=== PATIENT | female | born 1970 ===

== ENCOUNTER 2018-03-13 16:48 | Outpatient (REF) | payer BC, SELFPAY ==
[2018-03-13 20:33] LABS: Iron 46 ug/dL (50-175); Total Iron Binding Capacity 337 ug/dL (250-450); Transferrin Sat 14 % (15-50)
[2018-03-13 20:34] LABS: ALT 21 U/L (12-78); AST 20 U/L (15-37); Albumin 3.7 g/dL (3.4-5.0); Alkaline Phosphatase 68 U/L (46-116); Anion Gap 6.2 mmol/L (3-11); BUN 9 mg/dL (7-18); Bilirubin, Total 0.2 mg/dL (0.2-1.0); CO2 28.8 mmol/L (21.0-32.0); Calcium 9.1 mg/dL (8.5-10.1); Chloride 104 mmol/L (98-107); Glucose 85 mg/dL (70-100); Sodium 139 mmol/L (136-145); Total Protein 6.4 g/dL (6.4-8.2)
== END 2018-03-13 17:08 ==
LOC: NCHCN 16:48
PROVIDERS: PCP Internal Medicine; Visit Provider Internal Medicine
DX: F11.20 Opioid dependence, uncomplicated (principal); I10 Essential (primary) hypertension; Z98.1 Arthrodesis status
CPT/HCPCS: 80053; 83540; 83550

== ENCOUNTER 2019-10-22 18:11 | Outpatient (REF) | payer BC, SELFPAY ==
[2019-10-22 21:38] LABS: FREE T4 1.12 ng/dL (0.76-1.46); TSH 5.71 uIU/mL (0.36-3.74)
== END 2019-10-22 18:31 ==
LOC: NCHCN 18:11
PROVIDERS: PCP Internal Medicine; Visit Provider Internal Medicine
DX: N28.89 Other specified disorders of kidney and ureter (principal); N83.291 Other ovarian cyst, right side; I10 Essential (primary) hypertension; F11.20 Opioid dependence, uncomplicated
CPT/HCPCS: 84439; 84443

== ENCOUNTER 2020-01-21 17:37 | Outpatient (REF) | payer BC, SELFPAY ==
[2020-01-21 21:58] LABS: FREE T4 1.43 ng/dL (0.76-1.46); TSH 0.78 uIU/mL (0.36-3.74)
== END 2020-01-21 17:57 ==
LOC: NCHCN 17:37
PROVIDERS: PCP Internal Medicine; Visit Provider Internal Medicine
DX: I10 Essential (primary) hypertension (principal); Z90.89 Acquired absence of other organs; F11.20 Opioid dependence, uncomplicated
CPT/HCPCS: 84439; 84443

== ENCOUNTER 2020-04-14 17:06 | Outpatient (REF) | payer BC, SELFPAY ==
[2020-04-14 20:06] LABS: HCT 39.9 % (36.0-46.0); HGB 14.1 g/dL (11.2-15.7); MCH 32.8 pg (27.0-33.0); MCHC 35.3 % (32.0-36.0); MCV 92.8 fL (80-95); MPV 9.5 fL (8.0-11.0); Platelet Count 314 10^3/uL (130-400); RDW 13.5 % (11.7-14.6); RDW-SD 45.6 fL; WBC 9.71 10^3/uL (4.4-10.8)
[2020-04-14 20:19] LABS: ALT 18 U/L (14-59); AST 16 U/L (15-37); Albumin 3.8 g/dL (3.4-5.0); Alkaline Phosphatase 86 U/L (46-116); Anion Gap 6.8 mmol/L (3-11); BUN 14 mg/dL (7-18); Bilirubin, Total 0.2 mg/dL (0.2-1.0); CO2 33.2 mmol/L (21.0-32.0); CREATININE 0.92 mg/dL (0.55-1.02); Calcium 9.3 mg/dL (8.5-10.1); Chloride 97 mmol/L (98-107); Glucose 79 mg/dL (74-106); LDH 137 U/L (81-234); Potassium 3.7 mmol/L (3.5-5.1); Sodium 137 mmol/L (136-145); Total Protein 6.8 g/dL (6.4-8.2)
== END 2020-04-14 17:26 ==
LOC: NCHCN 17:06
PROVIDERS: PCP Internal Medicine; Visit Provider Internal Medicine
DX: R59.0 Localized enlarged lymph nodes (principal); I10 Essential (primary) hypertension; F11.20 Opioid dependence, uncomplicated
CPT/HCPCS: 80053; 85027; 83615

== ENCOUNTER 2022-07-19 17:19 | Outpatient (REF) | payer BC, SELFPAY ==
[2022-07-19 21:16] LABS: HCT 42.7 % (36.0-46.0); HGB 14.9 g/dL (11.2-15.7); MCHC 34.9 % (32.0-36.0); MCV 92 fL (80-95); MPV 9.3 fL (8.0-11.0); Platelet Count 297 10^3/uL (130-400); RBC 4.65 10^6/uL (3.93-5.22); RDW 13.5 % (11.7-14.6); RDW-SD 45.8 fL; WBC 7.83 10^3/uL (4.4-10.8)
[2022-07-19 21:48] LABS: ALT 28 U/L (14-59); AST 32 U/L (15-37); Alkaline Phosphatase 76 U/L (46-116); Anion Gap 10.8 mmol/L (3-11); BUN 11 mg/dL (7-18); Bilirubin, Total 0.2 mg/dL (0.2-1.0); CO2 28.2 mmol/L (21.0-32.0); CREATININE 0.9 mg/dL (0.55-1.02); Calcium 9.3 mg/dL (8.5-10.1); Calculated LDL 160 mg/dL (<100); Chloride 100 mmol/L (98-107); Cholesterol 263 mg/dL (<200); Glucose 94 mg/dL (74-106); HDL Cholesterol 86 mg/dL (40-60); Potassium 3.4 mmol/L (3.5-5.1); Sodium 139 mmol/L (136-145); Total Protein 7.2 g/dL (6.4-8.2); Triglyceride 86 mg/dL (<150)
== END 2022-07-19 17:20 | disposition home or self-care (01) ==
LOC: NCHCN 17:19
PROVIDERS: PCP Internal Medicine; Visit Provider Internal Medicine
DX: R53.1 Weakness (principal); L29.8 Other pruritus; M54.51 Vertebrogenic low back pain; I10 Essential (primary) hypertension
CPT/HCPCS: 80053; 80061; 85027

== ENCOUNTER 2022-10-12 13:45 | Outpatient (REF) | payer BC, SELFPAY | END 2022-10-12 13:46 | disposition home or self-care (01) | LOC: NCHCN 13:45 | PROVIDERS: PCP Internal Medicine; Visit Provider Nurse Practitioner Family | DX: R30.0 Dysuria (principal) | CPT/HCPCS: 87077; 87086; 87186 ==

== ENCOUNTER 2023-01-10 18:30 | Outpatient (REF) | payer BC, SELFPAY ==
[2023-01-10 21:25] LABS: Ferritin 38 ng/mL (8-252); Potassium 3.8 mmol/L (3.5-5.1)
== END 2023-01-10 18:31 | disposition home or self-care (01) ==
LOC: NCHCN 18:30
PROVIDERS: PCP Internal Medicine; Visit Provider Internal Medicine
DX: G25.81 Restless legs syndrome (principal)
CPT/HCPCS: 82728; 84132

== ENCOUNTER 2023-06-27 18:55 | Outpatient (REF) | payer BC, SELFPAY ==
[2023-06-27 20:32] LABS: HGB 14.4 g/dL (11.2-15.7); MCH 33.2 pg (27.0-33.0); MCHC 35.1 % (32.0-36.0); MCV 95 fL (80-95); MPV 9.7 fL (8.0-11.0); Platelet Count 287 10^3/uL (130-400); RBC 4.34 10^6/uL (3.93-5.22); RDW 12.8 % (11.7-14.6); RDW-SD 44.6 fL; WBC 8.69 10^3/uL (4.4-10.8)
[2023-06-27 20:49] LABS: Hemoglobin A1C 5.6 % (<5.7)
[2023-06-27 20:53] LABS: Anion Gap 7.9 mmol/L (3-11); BUN 12 mg/dL (7-18); CO2 29.1 mmol/L (21.0-32.0); CREATININE 0.7 mg/dL (0.55-1.02); Calcium 9.4 mg/dL (8.5-10.1); Chloride 102 mmol/L (98-107); FREE T4 1.16 ng/dL (0.76-1.46); Glucose 89 mg/dL (74-106); Potassium 3.3 mmol/L (3.5-5.1); Sodium 139 mmol/L (136-145); TSH 1.19 uIU/Ml (0.36-3.74)
[2023-06-27 21:04] LABS: Calculated LDL 130 mg/dL (<100); Cholesterol 212 mg/dL (<200); HDL Cholesterol 71 mg/dL (40-60); Triglyceride 56 mg/dL (<150)
[2023-06-28 18:44] LABS: Hepatitis C Ab w Rflx HCV PCR Negative (Negative)
[2023-06-28 18:47] LABS: HIV-1/2 Ag & Ab Screen Negative (Negative)
== END 2023-06-27 18:56 | disposition home or self-care (01) ==
LOC: NCHCN 18:55
PROVIDERS: PCP Internal Medicine; Visit Provider Internal Medicine
DX: I10 Essential (primary) hypertension (principal); E03.9 Hypothyroidism, unspecified; Z13.1 Encounter for screening for diabetes mellitus; Z00.00 Encounter for general adult medical examination without abnormal findings
CPT/HCPCS: 80048; 80061; 85027; 86803; 87389; 83036; 84439; 84443

== ENCOUNTER 2023-09-27 15:17 | Outpatient (REF) | payer BC, SELFPAY ==
--- OUTSIDE RECORDS SUMMARY | 2023-09-27 15:20 | XMS_ITS | Continuity of Care Document ---
Author Name Unknown Organization [facility] Address [address] [place] [address] Care Team Providers Care Pacu Rn Name Role Phone Anrdei Mcconnell Primary Care Physician Encounter [facility] Date(s): 08/30/22 - 08/30/[address] [phone] Discharge Disposition: Home or Self Care Attending Physician: Andrei Mcconnell MD Admitting Physician: Andrei Mcconnell MD Referring Physician: Andrei Mcconnell MD Allergies, Adverse Reactions, Alerts No Known Medication Allergies Substance Reaction Severity Status topiramate Other Moderate Active Immunizations Given and Recorded Vaccine Date Status Refusal Reason SARS-CoV-2 (COVID-19) mRNA BNT-162b2 vax 03/24/21 Recorded SARS-CoV-2 (COVID-19) mRNA BNT-162b2 vax 09/22/20 Recorded SARS-CoV-2 (COVID-19) mRNA BNT-162b2 vax 09/01/20 Recorded influenza virus vaccine, inactivated 01/31/10 Catrachito rded tetanus/diphth/pertuss (Tdap) adult/adol 01/09/08 Recorded rubella virus vaccine 04/02/00 Recorded varicella virus vaccine 04/02/00 Recorded hepatitis B adult vaccine 04/02/00 Recorded measles/mumps/rubella virus vaccine 04/02/00 Recor ded Medications !-Zofran 4 mg oral tablet 4 mg = 1 tab, Oral, every 8 hr, # 15 tab, 0 Refill(s), Pharmacy: [facility] #[id number], 154.94, cm, 04/02/22 8:30:00 EST, Height/Length Dosing, 56.7, kg, 04/02/22 8:30:00 EST, Weight Dosing Start Date: 04/02/22 Stop Date: 04/07/22 Status: Ordered PROzac 20 mg oral capsule 20 mg = 1 cap, Oral, Daily, # 30 cap, 0 Refill(s) Start Date: 04/02/22 Status: Ordered Suboxone See Instructions, 0 Refill(s) Start Date: 04/02/22 Status: Ordered Synthroid 0 Refill(s) Start Date: 04/02/22 Status: Ordered Social History Social History Type Response Tobacco Never tobacco user T obacco Use:. Sex Female Patient Care team information Care Team Personnel Name: [facility] Position: No Access Member Role: Primary Care Physician Address: Address: [id number] [place] [address] Care Team Related Persons Name: YAEL BROWNE Address: Home Name: KIERAN BROWNE Address: Home
--- OUTSIDE RECORDS SUMMARY | 2023-09-27 15:20 | XMS_ITS | Continuity of Care Document ---
Author Name Unknown Organization [facility] Address [address] [place] [address] Care Team Providers Care Tennis [employer] Instructor Name Role Phone Andrei Mcconnell Primary Care Physician Encounter [facility] Date(s): 10/20/22 - 10/20/[address] [phone] Discharge Disposition: Home or Self Care Attending [...] hr, # 15 tab, 0 Refill(s), Pharmacy: [facility] #[id number], 154.94, cm, 04/02/22 8:30:00 EST, Height/Length Dosing, 56.7, kg, 04/02/22 8:30:00 EST, Weight Dosing Start Date: 04/02/22 Stop Date: 04/07/22 Status: Ordered PROzac 20 mg oral capsule 20 mg = 1 cap, Oral, Daily, # 30 cap, 0 Refill(s) Start Date: 04/02/22 Status: Ordered Suboxone See Instructions, 0 Refill(s) Start Date: 04/02/22 Status: Ordered Synthroid 0 Refill(s) Start Date: 04/02/22 Status: Ordered Results Laboratory List Name Date Potassium Level 10/20/22 TSH w/ Rflx to Free T4 10/20/22 Most recent to oldest [Reference Range]: 1 Potassium Level [3.5-5.1 mmol/L] 3.4 mmo l/L *LOW* (10/20/22 12:34 PM) TSH [0.358-3.740 mcIntlUnit/mL] 0.572 mc IntlUnit/mL (10/20/22 12:34 PM) Social History Social History Type Response Tobacco Never tobacco user T obacco Use:. Sex Female Patient Care team information Care Team Personnel Name: Andrei Mcconnell MD Position: No Access Member Role: Primary Care Physician Address: Address: [address] Care Team Related Persons Name: YAEL BROWNE Address: Home Name: KIERAN BROWNE Address: Home
--- OUTSIDE RECORDS SUMMARY | 2023-09-27 15:20 | XMS_ITS | Continuity of Care Document ---
Author Name Unknown Organization [facility] Address [address] [place] [address] Care Team Providers Care Unscrambler Name Role Phone Andrei Mcconnell Primary Care Physician Encounter [facility] Date(s): 05/01/22 - 05/01/[address] [phone] Discharge Disposition: Home or Self Care Attending [...] hr, # 15 tab, 0 Refill(s), Pharmacy: [facility] #[id number], 154.94, cm, 04/02/22 8:30:00 EST, Height/Length [...] Use:. Sex Female Patient Care team information Personnel Name: [facility], Andrei Cedeno MD Address: Address: [address] [address]- [place]
--- OUTSIDE RECORDS SUMMARY | 2023-09-27 15:20 | XMS_ITS | Continuity of Care Document ---
Author Name Unknown Organization [facility] Address [address] [place] [address] Care Team Providers Care Channel Director Name Role Phone Andrei Mcconnell Primary Care Physician Encounter [facility] Date(s): 09/05/23 - 09/05/[address] [phone] Discharge Disposition: Home or Self Care Attending [...] hr, # 15 tab, 0 Refill(s), Pharmacy: [facility] #[id number], 154.94, cm, 04/02/22 8:30:00 EST, Height/Length [...] team information Care Team Personnel Name: Rodney Andrei BENITEZ MD Position: No Access Member Role: Primary Care Physician Address: Address: [address] Care Team Related Persons Name: YAEL BROWNE Name: KIERAN BROWNE
--- OUTSIDE RECORDS SUMMARY | 2023-09-27 15:20 | XMS_ITS | Continuity of Care Document ---
Author Name Unknown Organization [facility] Address [address] [place] [address] Care Team Providers Care Travelers' Aid Worker Name Role Phone Andrei Gutiérrez Primary Care Physician Encounter [facility] Date(s): 03/07/22 - 03/07/[address] [phone] Discharge Disposition: Home or Self Care Attending Physician: Andrei Gutiérrez MD Admitting Physician: Andrei Gutiérrez MD Referring Physician: Andrei Gutiérrez MD Allergies, Adverse Reactions, Alerts No Known [...] Recorded measles/mumps/rubella virus vaccine 04/02/00 Recor ded Results Laboratory List Name Date Free T4 03/07/22 T3, Free [facility] 03/07/22 Thyroid Stimulating Hormone 03/07/22 Most recent to oldest [Reference Range]: 1 T4 Free [0.76-1.46 ng/dL] 1.06 ng/dL (03/07/22 10:12 AM) TSH [0.358-3.740 mcIntlUnit/mL] 0.850 mc IntlUnit/mL (03/07/22 10:12 AM) T3, Free [facility] [2.8-5.3 pg/mL] 3.7 pg/mL 1 *NA* (03/07/22 10:12 AM) 1Result Comment: Test performed or referred by The [address] [address] Social History Social History Type Response Sex Female Patient Care team information Personnel Name: Rodney RICKETTSAndrei MD Address: Address: [address] [address]- [place]
--- OUTSIDE RECORDS SUMMARY | 2023-09-27 15:20 | XMS_ITS | Continuity of Care Document ---
Author Name Unknown Organization [facility] Address [address] [place] [address] Care Team Providers Care Information Technology Auditor Name Role Phone [facility] En[facility] Date(s): 04/02/22 - 04/02/[address] [address] Encounter Diagnosis Gastroenteritis(Discharge Diagnosis) - 04/02/22 Bradycardia(Discharge Diagnosis) - 04/02/22 Discharge Disposition: Home or Self Care Attending Physician: Oliverio Cool MD Admitting Physician: Oliverio Cool MD Allergies, Adverse Reactions, Alerts No Known Medication Allergies Substance Reaction Severity Status topiramate Other Moderate Active Assessment and Plan Extracted from: Title:Clinical Document Author:Cheryl Del Toro te:04/02/22 Diagnosis: 1. Gastroenteriti s Comment: Diagnosis: Abdominal pain Comment: Immunizations Given and Recorded Vaccine Date Status [...] hr, # 15 tab, 0 Refill(s), Pharmacy: [id number], 154.94, cm, 04/02/22 8:30:00 EST, Height/Length [...] Status: Ordered Results Laboratory List Name Date TSH w/ Rflx to Free T4 04/02/22 Comprehensive Metabolic Panel 04/02/22 Lipase Level 04/02/22 CBC w/ Diff 04/02/22 .Manual Differential (NCTY) 04/02/22 Flu A+B (Brooke) 04/02/22 Most recent to oldest [Reference Range]: 1 WBC [5.0-10.0 x10^3/mcL] 13.7 x10^3/mcL *HI* (04/02/22 9:28 AM) RBC [4.1-5.3 x10^6/mcL] 4.5 x10^6/mcL (04/02/22 9:28 AM) Segs Man [40-75 %] 90 % *HI* (04/02/22 9:28 AM) Lymph Man [20-50 %] 6 % *LOW* (04/02/22 9:28 AM) [place] Man 4 % *NA* (04/02/22 9:28 AM) Eos Man 0 % *NA* (04/02/22 9:28 AM) BUN [7-18 mg/dL] 16 mg/dL (04/02/22 9:28 AM) Glucose Level [74-106 mg/dL] 124 mg/dL *HI* (04/02/22 9:28 AM) Potassium Level [3.5-5.1 mmol/L] 3.5 mmo l/L (04/02/22 9:28 AM) MCV [80.0-96.0] 93.5 (04/02/22 9:28 AM) RBC Morph Normal (04/02/22 9:28 AM) AST [15-37 unit/L] 39 unit/L *HI* (04/02/22 9:28 AM) ALT [14-59 unit/L] 31 unit/L (04/02/22 9:28 AM) MCHC [31.0-35.0 g/dL] 34.9 g/dL (04/02/22 9:28 AM) Sodium Level [136-145 mmol/L] 140 mmol/L (04/02/22 9:28 AM) Hct [37.0-47.0 %] 41.8 % (04/02/22 9:28 AM) Lipase Level [16-77 unit/L] 44 unit/L (04/02/22 9:28 AM) Calcium Level [8.5-10.1 mg/dL] 9.1 mg/dL (04/02/22 9:28 AM) Albumin Level [3.4-5.0 g/dL] 3.8 g/dL (04/02/22 9:28 AM) Protein Total [6.4-8.2 g/dL] 7.5 g/dL (04/02/22 9:28 AM) MCH [26.0-32.0 pg] 32.7 pg *HI* (04/02/22 9:28 AM) Bilirubin Total [0.2-1.0 mg/dL] 0.4 mg/d L (04/02/22 9:28 AM) Hgb [12.0-16.0 g/dL] 14.6 g/dL (04/02/22 9:28 AM) Alk Phos [46-146 unit/L] 84 unit/L (04/02/22 9:28 AM) Band Man [0-5 %] 0 % (04/02/22 9:28 AM) Platelets [130-450 x10^3/mcL] 276 x10^3/ mcL (04/02/22 9:28 AM) CO2 [21-32 mmol/L] 29 mmol/L (04/02/22 9:28 AM) TSH [0.358-3.740 mcIntlUnit/mL] 0.880 mc IntlUnit/mL (04/02/22 9:35 AM) eGFR Non-AA [>=60] 83 (04/02/22 9:28 AM) eGFR AA [>=60] 83 (04/02/22 9:28 AM) Chloride Level [98-107 mmol/L] 102 mmol/ L (04/02/22 9:28 AM) RDW-CV [11.7-17.0 %] 14.2 % (04/02/22 9:28 AM) Abs Neut Man 12.3 x10^3/mcL *NA* (04/02/22 9:28 AM) Creatinine Level [0.55-1.02 mg/dL] 0.85 mg/dL (04/02/22 9:28 AM) Flu A- Brooke [Negative] Negative (04/02/22 9:27 AM) Flu B- Brooke [Negative] Negative (04/02/22 9:27 AM) Baso Man [0-1 %] 0 % (04/02/22 9:28 AM) Vital Signs Most recent to oldest [Reference Range]: 1 2 3 Temperature Temporal Artery [36-38 Deg C] 35.1 Deg C *LOW* (04/02/22 8:24 AM) Peripheral Pulse Rate [60-100 bpm] 84 bpm (04/02/22 8:24 AM) Heart Rate Monitored [60-100 bpm] 46 bpm *LOW* (04/02/22 10:30 AM) 47 bpm *LOW* (04/02/22 9:53 AM) Respiratory Rate [12-24 br/min] 15 br/min (04/02/22 10:30 AM) 16 br/min (04/02/22 9:53 AM) 18 br/min (04/02/22 8:24 AM) Blood Pressure [90-140/60-90 mmHg] 173/77mmHg *HI* (04/02/22 10:30 AM) 184/80mmHg *HI* (04/02/22 9:53 AM) 160/74mmHg *HI* (04/02/22 8:24 AM) Weight Dosing 56.70 kg (04/02/22 8:30 AM) Weight Estimated 56.70 kg (04/02/22 8:24 AM) Height/Length Dosing 154.940 cm (04/02/22 8:30 AM) Height/Length Estimated 154.940 cm (04/02/22 8:24 AM) Social History Social History Type Response Tobacco Never tobacco user T obacco Use:. Sex Female Hospital Discharge Instructions Patient Education 04/02/2022 11:30:59 Bradycardia, Adult Bradycardia, Adult Bradycardia is a hklqug-hsvo-lccfbt heartbeat. A normal resting heart rate for an adult ranges from60 to 100 beats per minute. With bradycardia, the resting heart rate is less than 60 beats per minute. Bradycardia can prevent enough oxygen from reaching certain areas of your body when you are active.It can be serious if it keeps enough oxygen from reaching your brain and other parts of your body. Bradycardia is not a problem for everyone. For some healthy adults, a slow resting heart rate is normal. What are the causes? This condition may be caused by: ??? A problem with the heart, including: ??? A problem with the heart's electrical system, such as a heart block. With a heart block, electrical signals between the chambers of the heart are partially or completely blocked, so they are not able to work as they should. ??? A problem with the heart's natural pacemaker (sinus node). ??? Heart disease. ??? A heart attack. ??? Heart damage. ??? Lyme disease. ??? A heart infection. ??? A heart condition that is present at (congenital heart defect). ??? Certain medicines that treat heart conditions. ??? Certain conditions, such as hypothyroidism and obstructive sleep apnea. ??? Problems with the balance of chemicals and other substances, like potassium, in the blood. ??? Trauma. ??? Radiation therapy. What increases the risk? You are more likely to develop this condition if you: ??? Are age 65 or older. ??? Have high blood pressure (hypertension), high cholesterol (hyperlipidemia), or diabetes. ??? Drink heavily, use tobacco or nicotine products, or use drugs. What are the signs or symptoms? Symptoms of this condition include: ??? Light-headedness. ??? Feeling faint or fainting. ??? Fatigue and weakness. ??? Trouble with activity or exercise. ??? Shortness of breath. ??? Chest pain (angina). ??? Drowsiness. ??? Confusion. ??? Dizziness. How is this diagnosed? This condition may be diagnosed based on: ??? Your symptoms. ??? Your medical history. ??? A physical exam. During the exam, your health care provider will listen to your heartbeat and check your pulse. To confirm the diagnosis, your health care provider may order tests, such as: ??? Blood tests. ??? An electrocardiogram (ECG). This test records the heart's electrical activity. The test can show how fast your heart is beating and whether the heartbeat is steady. ??? A test in which you wear a portable device (event recorder or Holter monitor) to record your heart's electrical activity while you go about your day. ??? An??exercise test. How is this treated? Treatment for this condition depends on the cause of the condition and how severe your symptoms are. Treatment may involve: ??? Treatment of the underlying condition. ??? Changing your medicines or how much medicine you take. ??? Having a small, battery-operated device called a pacemaker implanted under the skin. When bradycardia occurs, this device can be used to increase your heart rate and help your heart beat in a regular rhythm. Follow these instructions at home: Lifestyle ??? Manage any health conditions that contribute to bradycardia as told by your health care provider. ??? Follow a heart-healthy diet. A branding specialist (dietitian) can help educate you about healthy food options and changes. ??? Follow an exercise program that is approved by your health care provider. ??? Maintain a healthy weight. ??? Try to reduce or manage your stress, such as with yoga or meditation. If you need help reducingstress, ask your health care provider. ??? Do not use any products that contain nicotine or tobacco, such as cigarettes, e-cigarettes, andchewing tobacco. If you need help quitting, ask your health care provider. ??? Do not use illegal drugs. ??? Limit alcohol intake to no more than 1 drink a day for non women and 2 drinks a day formen. Be aware of how much alcohol is in your drink. In the [place] one drink equals one 12 oz bottle of beer (355 mL), one 5 oz glass of wine (148 mL), or one 1?? oz glass of hard liquor (44 mL). General instructions ??? Take magv-aeb-bfseptt and prescription medicines only as told by your health care provider. ??? Keep all follow-up visits as told by your health care provider. This is important. How is this prevented? In some cases, bradycardia may be prevented by: ??? Treating underlying medical problems. ??? Stopping behaviors or medicines that can trigger the condition. Contact a health care provider if you: ??? Feel light-headed or dizzy. ??? Almost faint. ??? Feel weak or are easily fatigued during physical activity. ??? Experience confusion or have memory problems. Get help right away if: ??? You faint. ??? You have: ??? An irregular heartbeat (palpitations). ??? Chest pain. ??? Trouble breathing. Summary ??? Bradycardia is a stkpjb-htix-ehwauy heartbeat. With bradycardia, the resting heart rate is lessthan 60 beats per minute. ??? Treatment for this condition depends on the cause. ??? Manage any health conditions that contribute to bradycardia as told by your health care provider. ??? Do not use any products that contain nicotine or tobacco, such as cigarettes, e-cigarettes, andchewing tobacco, and limit alcohol intake. ??? Keep all follow-up visits as told by your health care provider. This is important. This information is not intended to replace advice given to you by your health care provider. Make sure you discuss any questions you have with your health care provider. Document Revised: 09/30/2018 Document Reviewed: 08/28/2018 [employer] Patient Education ?? 2021 [employer]. 04/02/2022 11:27:58 Diarrhea, Adult Diarrhea, Adult Diarrhea is frequent loose and watery bowel movements. Diarrhea can make you feel weak and cause you to become dehydrated. Dehydration can make you tired and thirsty, cause you to have a dry mouth, and decrease how often you urinate. Diarrhea typically lasts 2???3 days. However, it can last longer if it is a sign of something more serious. It is important to treat your diarrhea as told by your health care provider. Follow these instructions at home: Eating and drinking Follow these recommendations as told by your health care provider: ??? Take an oral rehydration solution (ORS). This is an iadh-ksm-slrxrns medicine that helps returnyour body to its normal balance of nutrients and water. It is found at pharmacies and retail stores. ??? Drink plenty of fluids, such as water, ice chips, diluted fruit juice, and low-calorie sports drinks. You can drink milk also, if desired. ??? Avoid drinking fluids that contain a lot of sugar or caffeine, such as energy drinks, sports drinks, and soda. ??? Eat bland, fcsj-sf-yzmokq foods in small amounts as you are able. These foods include bananas, applesauce, rice, lean meats, toast, and crackers. ??? Avoid alcohol. ??? Avoid spicy or fatty foods. Medicines ??? Take wopg-tdm-zgsseqm and prescription medicines only as told by your health care provider. ??? If you were prescribed an antibiotic medicine, take it as told by your health care provider. Donot stop using the antibiotic even if you start to feel better. General instructions ??? Wash your hands often using soap and water. If soap and water are not available, use a hand periodicals library assistant. Others in the household should wash their hands as well. Hands should be washed: ??? After using the toilet or changing a diaper. ??? Before preparing, cooking, or serving food. ??? While caring for a sick person or while visiting someone in a hospital. ??? Drink enough fluid to keep your urine pale yellow. ??? Rest at home while you recover. ??? Watch your condition for any changes. ??? Take a warm bath to relieve any burning or pain from frequent diarrhea episodes. ??? Keep all follow-up visits as told by your health care provider. This is important. Contact a health care provider if: ??? You have a fever. ??? Your diarrhea gets worse. ??? You have new symptoms. ??? You cannot keep fluids down. ??? You feel light-headed or dizzy. ??? You have a headache. ??? You have muscle cramps. Get help right away if: ??? You have chest pain. ??? You feel extremely weak or you faint. ??? You have bloody or black stools or stools that look like tar. ??? You have severe pain, cramping, or bloating in your abdomen. ??? You have trouble breathing or you are breathing very quickly. ??? Your heart is beating very quickly. ??? Your skin feels cold and clammy. ??? You feel confused. ??? You have signs of dehydration, such as: ??? Dark urine, very little urine, or no urine. ??? Cracked lips. ??? Dry mouth. ??? Sunken eyes. ??? Sleepiness. ??? Weakness. Summary ??? Diarrhea is frequent loose and watery bowel movements. Diarrhea can make you feel weak and cause you to become dehydrated. ??? Drink enough fluids to keep your urine pale yellow. ??? Make sure that you wash your hands after using the toilet. If soap and water are not available,use hand periodicals library assistant. ??? Contact a health care provider if your diarrhea gets worse or you have new symptoms. ??? Get help right away if you have signs of dehydration. This information is not intended to replace advice given to you by your health care provider. Make sure you discuss any questions you have with your health care provider. Document Revised: 08/05/2019 Document Reviewed: 08/23/2018 [employer] Patient Education ?? 2021 [employer]. Follow Up Care 04/02/2022 08:24:11 With:Follow up with primary care provider Address: When:1 to 2 days Comments:You been seen in the emergency department and no emergent medical condition has been identified. ??It is recommended that you follow-up with your primary care provider within the next??48 hours. ??Ifyour condition worsens or you are unable to??arrange for appropriate follow-up please??reach out tot emergency department by phone or return to the emergency department for repeat evaluation. EKG study * Event Display: Telemetry Strips Please click on link to view image. Physician Emergency department Note * Oliverio Cool MD: PERFORM Event Display: ED Note Physician Authored Date: [id number] TOMAS BROWNE :1970 Age:51 years Sex:Female Visit Date:04/02/2022 Primary Care Physician: Andrei Gutiérrez MD Basic Information Time Seen: Oliverio Cool MD / 04/02/2022 08:43 Chief Complaint Pt c/o diffuse abdominal pain with nausea, vomiting, and diarrhea since this am History Of Present Illness: Patient presents with diffuse abdominal cramping and vomiting and diarrhea since this morning. ??States that this happens to her several times a year but she does not know why. ??Denies??heavy alcohol ingestion. ??Denies??gallbladder disease or previous abdominal surgeries.?? Patient is requesting pain medication IV fluids that she feels as though she is dehydrated. ??States that she seems to be pale. ??No fevers no chills.?? She was in her normal state of health last night. Review of Systems: Constitutional:?No??fevers,?No??chills,?No??sweats Eye:?No??recent visual problems ENT:?No??ear pain,?No??nasal congestion,?No??sore throat Respiratory:?No??shortness of breath,?No??cough Cardiovascular:?No??Chest pain,?No??palpitations,?No??syncope Gastrointestinal:? Genitourinary:?No??hematuria Adal/Lymph:?No??bruising tendency,?No??swollen lymph glands Endocrine:?No??excessive thirst,??No??excessive hunger Musculoskeletal:??No??back pain,??No??neck pain,??No??joint pain,??No??muscle pain,??No??decreased range of motion Integumentary:?No??rash,?No??pruritus,?No??abrasions Neurologic: Alert & oriented X 4 Psychiatric:?No??anxiety,?No??depression Physical Exam Vitals & Measurements T:??35.1?C ??(Temporal Artery)?? HR:??46??(Monitored)?? RR:??15?? BP:??173/77?? SpO2:??99%?? HT:??154.940??cm?? WT:??56.70??kg??(Estimated)?? Pain Score:??7?? O2 Therapy:??Room air?? General: Alert and oriented, well nourished,??pallor Eye: PERRL, EOMI,?Normal??conjunctiva HENT: Normocephalic,??Normal?? hearing, moist oral mucosa,?No??scleral icterus Neck:??FROM,??No??JVD Lungs: Non-labored?? respiration Heart:?Normal?? rate,?Regular??rhythm,?No??peripheral edema, Adequate peripheral perfusion Abdomen:??Diffuse nonfocal abdominal tenderness. Musculoskeletal:?Normal?? range of motion and strength,?No??tenderness,?No??swelling Skin:??No??rashes,?No??lesions, Dry Neurologic: Awake, alert and oriented X4, CN II-XII intact, Steady Gait Psychiatric: Cooperative, appropriate mood and affect. Linear thought process Medical Decision Making: Will initiate fluid hydration obtain labs and treat pain and nausea.?? No focality to the abdominalexam do not suspect??intra-abdominal infection. ??Possible gastroenteritis possible flu. ?? Labs are reassuring and CT scan of the abdomen pelvis reveals no etiology of the patient's abdominal pain. ?? I have been monitoring her??throughout her stay in the emergency department and she has been persistently bradycardic. ??Although when she exerts herself her heart rate accelerates. ?? EKG was interpreted by me as sinus bradycardia. ?? Patient tolerating p.o. and still feels unwell but is stable for discharge.?Nausea vomiting and diarrhea suspect??gastroenteritis. ?? CT scan was performed and showed no acute pathology of the abdomen and pelvis. ??Patient was tolerating p.o. when I went to reassess her.?? Unclear etiology of the patient's??abdominal discomfort.?? Incidentally the patient was also bradycardic but when she got up to use the toilet her heart rate??climbed quickly to a heart rate of 80.?? Have informed her that she should follow-up with her primary care provider as her bradycardia was significant. ?? Patient stable for outpatient??evaluation of her abdominal pain and??bradycardia. ??Understands the need to return if she starts to have shortness of breath or chest pain or inability to tolerate fluids or worsening abdominal pain. Procedure No Qualifying Data Assessment/Plan 1.??Gastroenteritis??K52.9 2.??Bradycardia??R00.1 Orders: !-Zofran 4 mg oral tablet, 4 mg = 1 tab, Oral, every 8 hr, # 15 tab, 0 Refill(s), Pharmacy: [id number], 154.94, cm, 04/02/22 8:30:00 EST, Height/Length Dosing, 56.7, kg, 04/02/22 8:30:00 EST, Weight Dosing Sodium Chloride 0.9% 1,000 mL, Total Volume (mL): 1,000, 1,000 mL, Soln-IV, IV, 1,000 mL/hr, Start Date: 04/02/22 8:51:00 EST, 56.7 kg, Populate Charting Weight From Order, 1.56, m2 Discharge Patient, 04/02/22 12:28:00 EST, Home Independently, Constant Indicator Patient Education Bradycardia, Adult Diarrhea, Adult Follow Up With When Contact Information Follow up with primary care provider Within 1 to 2 days Additional Instructions: You been seen in the emergency department and no emergent medical condition has been identified. ??It is recommended that you follow-up with your primary care provider withinthe next??48 hours. ??If your condition worsens or you are unable to??arrange for appropriate follow-up please??reach out to the emergency department by phone or return to the emergency department for repeat evaluation. Medication Reconciliation New Prescription ondansetron (!-Zofran 4 mg oral tablet)1 tab Oral (given by mouth) every 8 hours for 5 Days. Refills: 0. ?? Unchanged buprenorphine-naloxone (Suboxone) ?? FLUoxetine (PROzac 20 mg oral capsule)1 Capsules Oral (given by mouth) every day. ?? levothyroxine (Synthroid) Problem List/Past Medical History Ongoing No qualifying data Historical No qualifying data Medication Administration Given Sodium Chloride 0.9%, 1000 mL, IV !-Ofirmev, 1000 mg, IV Piggyback !-Zofran, 4 mg, IV Push morphine, 4 mg, IV Push Allergies topiramate??(Other) No Known Medication Allergies Social History Electronic Cigarette/Vaping Electronic Cigarette Use: Never. Tobacco Never tobacco user Tobacco Use:. Lab Results CBC and Differential?? LATEST RESULTS?? WBC?? 04/02/22 09:28?? 13.7 ??High?? RBC?? 04/02/22 09:28?? 4.5?? Hgb?? 04/02/22 09:28?? 14.6?? Hct?? 04/02/22 09:28?? 41.8?? MCV?? 04/02/22 09:28?? 93.5?? MCH?? 04/02/22 09:28?? 32.7 ??High?? MCHC?? 04/02/22 09:28?? 34.9?? RDW-CV?? 04/02/22 09:28?? 14.2?? Platelets?? 04/02/22 09:28?? 276?? Segs Man?? 04/02/22 09:28?? 90 ??High?? Lymph Man?? 04/02/22 09:28?? 6 ??Low?? [place] Man?? 04/02/22 09:28?? 4?? Eos Man?? 04/02/22 09:28?? 0?? Baso Man?? 04/02/22 09:28?? 0?? Band Man?? 04/02/22 09:28?? 0?? Abs Neut Man?? 04/02/22 09:28?? 12.3?? RBC Morph?? 04/02/22 09:28?? Normal? Routine Chemistry?? LATEST RESULTS?? Sodium Level?? 04/02/22 09:28?? 140?? Potassium Level?? 04/02/22 09:28?? 3.5?? Chloride Level?? 04/02/22 09:28?? 102?? CO2?? 04/02/22 09:28?? 29?? Alk Phos?? 04/02/22 09:28?? 84?? AST?? 04/02/22 09:28?? 39 ??High?? ALT?? 04/02/22 09:28?? 31?? BUN?? 04/02/22 09:28?? 16?? Glucose Level?? 04/02/22 09:28?? 124 ??High?? Creatinine Level?? 04/02/22 09:28?? 0.85?? eGFR AA?? 04/02/22 09:28?? 83?? eGFR Non-AA?? 04/02/22 09:28?? 83?? Calcium Level?? 04/02/22 09:28?? 9.1?? Protein Total?? 04/02/22 09:28?? 7.5?? Albumin Level?? 04/02/22 09:28?? 3.8?? Bilirubin Total?? 04/02/22 09:28?? 0.4?? Lipase Level?? 04/02/22 09:28?? 44? Thyroid Studies?? LATEST RESULTS?? HISTORICAL RESULTS?? TSH?? 04/02/22 09:35?? 0.880?? 03/07/22?? 0.850? Infectious Disease?? LATEST RESULTS?? Flu A- Brooke?? 04/02/22 09:27?? Negative?? Flu B- Brooke?? 04/02/22 09:27?? Negative? Electronically Signed on 04/02/22 04:00 PM Oliverio Cool MD Emergency department Discharge instructions * Oliverio Cool MD: PERFORM Event Display: ED Discharge Information Authored Date: [id number] LENCRISTITOMAS HODGES :1970 Age:51 years Sex:Female Visit Date:04/02/2022 Primary Care Physician: Andrei Gutiérrez MD Discharge Instructions We would like to thank you for allowing us to assist you with your healthcare needs. The following includes patient education materials and information regarding your injury/illness. Diagnosis from Today's Visit Gastroenteritis Discharge Vitals Temperature??(Temporal Artery) 95.2 ??F (35.1 ??C) Heart Rate??(Monitored) 46 Respiratory Rate?? 15 Blood Pressure?? 173/77?? Height?? 61.00 in (154.940 cm) Weight??(Estimated) 125.02 lb (56.70 kg) Allergies topiramate??(Other) No Known Medication Allergies What to Do Next You Need to Schedule the Following Appointments Follow Up with??Follow up with primary care provider When:??Within 1 to 2 days Why: You been seen in the emergency department and no emergent medical condition has been identified. ??It is recommended that you follow-up with your primary care provider within the next??48 hours.??If your condition worsens or you are unable to??arrange for appropriate follow-up please??reach out to the emergency department by phone or return to the emergency department for repeat evaluation. You were treated today on an emergency basis; it may be vernon to contact your primary care provider to notify them of your visit today. You may have been referred to your regular doctor or a specialist, please follow up as instructed. If your condition worsens or you can't get in to see the doctor, contact the Emergency Department. Medications What How Much When Instructions Next Dose New ondansetron (!-Zofran 4 mg oral tablet) 1 tab Oral (given by mouth) Every 8 hours Duration: 5 Days Pickup at [email or web address] Unchanged buprenorphine-naloxone (Suboxone) See instructions Unchanged FLUoxetine (PROzac 20 mg oral capsule) 1 Capsules Oral (given by mouth) Every day Unchanged levothyroxine (Synthroid) Pharmacy Information [email or web address]: [address], [place] [id number] [phone] Education Materials Bradycardia, Adult Bradycardia is a qihegw-fjuq-excsxj heartbeat. A normal resting heart rate for an adult ranges from60 to 100 beats per minute. With bradycardia, the resting heart rate is less than 60 beats per minute. Bradycardia can prevent enough oxygen from reaching certain areas of your body when you are active.It can be serious if it keeps enough oxygen from reaching your brain and other parts of your body. Bradycardia is not a problem for everyone. For some healthy adults, a slow resting heart rate is normal. What are the causes? This condition may be caused by: ? A problem with the heart, including: ? A problem with the heart's electrical system, such as a heart block. With a heart block, electricalsignals between the chambers of the heart are partially or completely blocked, so they are not ableto work as they should. ? A problem with the heart's natural pacemaker (sinus node). ? Heart disease. ? A heart attack. ? Heart damage. ? Lyme disease. ? A heart infection. ? A heart condition that is present at (congenital heart defect). ? Certain medicines that treat heart conditions. ? Certain conditions, such as hypothyroidism and obstructive sleep apnea. ? Problems with the balance of chemicals and other substances, like potassium, in the blood. ? Trauma. ? Radiation therapy. What increases the risk? You are more likely to develop this condition if you: ? Are age 65 or older. ? Have high blood pressure (hypertension), high cholesterol (hyperlipidemia), or diabetes. ? Drink heavily, use tobacco or nicotine products, or use drugs. What are the signs or symptoms? Symptoms of this condition include: ? Light-headedness. ? Feeling faint or fainting. ? Fatigue and weakness. ? Trouble with activity or exercise. ? Shortness of breath. ? Chest pain (angina). ? Drowsiness. ? Confusion. ? Dizziness. How is this diagnosed? This condition may be diagnosed based on: ? Your symptoms. ? Your medical history. ? A physical exam. During the exam, your health care provider will listen to your heartbeat and check your pulse. To confirm the diagnosis, your health care provider may order tests, such as: ? Blood tests. ? An electrocardiogram (ECG). This test records the heart's electrical activity. The test can show how fast your heart is beating and whether the heartbeat is steady. ? A test in which you wear a portable device (event recorder or Holter monitor) to record your heart's electrical activity while you go about your day. ? An??exercise test. How is this treated? Treatment for this condition depends on the cause of the condition and how severe your symptoms are. Treatment may involve: ? Treatment of the underlying condition. ? Changing your medicines or how much medicine you take. ? Having a small, battery-operated device called a pacemaker implanted under the skin. When bradycardia occurs, this device can be used to increase your heart rate and help your heart beat in a regularrhythm. Follow these instructions at home: Lifestyle ? Manage any health conditions that contribute to bradycardia as told by your health care provider. ? Follow a heart-healthy diet. A branding specialist (dietitian) can help educate you about healthy food options and changes. ? Follow an exercise program that is approved by your health care provider. ? Maintain a healthy weight. ? Try to reduce or manage your stress, such as with yoga or meditation. If you need help reducing stress, ask your health care provider. ? Do not use any products that contain nicotine or tobacco, such as cigarettes, e- cigarettes, and chewing tobacco. If you need help quitting, ask your health care provider. ? Do not use illegal drugs. ? Limit alcohol intake to no more than 1 drink a day for non women and 2 drinks a day for men. Be aware of how much alcohol is in your drink. In the [place] one drink equals one 12 oz bottle of beer (355 mL), one 5 oz glass of wine (148 mL), or one 1?? oz glass of hard liquor (44 mL). General instructions ? Take hedw-jev-sohsnls and prescription medicines only as told by your health care provider. ? Keep all follow-up visits as told by your health care provider. This is important. How is this prevented? In some cases, bradycardia may be prevented by: ? Treating underlying medical problems. ? Stopping behaviors or medicines that can trigger the condition. Contact a health care provider if you: ? Feel light-headed or dizzy. ? Almost faint. ? Feel weak or are easily fatigued during physical activity. ? Experience confusion or have memory problems. Get help right away if: ? You faint. ? You have: ? An irregular heartbeat (palpitations). ? Chest pain. ? Trouble breathing. Summary ? Bradycardia is a bwkozf-lqml-yylzzz heartbeat. With bradycardia, the resting heart rate is less than 60 beats per minute. ? Treatment for this condition depends on the cause. ? Manage any health conditions that contribute to bradycardia as told by your health care provider. ? Do not use any products that contain nicotine or tobacco, such as cigarettes, e- cigarettes, and chewing tobacco, and limit alcohol intake. ? Keep all follow-up visits as told by your health care provider. This is important. This information is not intended to replace advice given to you by your health care provider. Make sure you discuss any questions you have with your health care provider. Document Revised: 09/30/2018 Document Reviewed: 08/28/2018 [employer] Patient Education ?? 202 [employer] Diarrhea, Adult Diarrhea is frequent loose and watery bowel movements. Diarrhea can make you feel weak and cause you to become dehydrated. Dehydration can make you tired and thirsty, cause you to have a dry mouth, and decrease how often you urinate. Diarrhea typically lasts 2???3 days. However, it can last longer if it is a sign of something more serious. It is important to treat your diarrhea as told by your health care provider. Follow these instructions at home: Eating and drinking Follow these recommendations as told by your health care provider: ? Take an oral rehydration solution (ORS). This is an fpgr-uir-dzrcmic medicine that helps return your body to its normal balance of nutrients and water. It is found at pharmacies and retail stores. ? Drink plenty of fluids, such as water, ice chips, diluted fruit juice, and low- calorie sports drinks. You can drink milk also, if desired. ? Avoid drinking fluids that contain a lot of sugar or caffeine, such as energy drinks, sports drinks, and soda. ? Eat bland, bhsr-cd-krpxvn foods in small amounts as you are able. These foods include bananas, applesauce, rice, lean meats, toast, and crackers. ? Avoid alcohol. ? Avoid spicy or fatty foods. Medicines ? Take pdnv-urt-jamugfd and prescription medicines only as told by your health care provider. ? If you were prescribed an antibiotic medicine, take it as told by your health care provider. Do notstop using the antibiotic even if you start to feel better. General instructions ? Wash your hands often using soap and water. If soap and water are not available, use a hand periodicals library assistant. Others in the household should wash their hands as well. Hands should be washed: ? After using the toilet or changing a diaper. ? Before preparing, cooking, or serving food. ? While caring for a sick person or while visiting someone in a hospital. ? Drink enough fluid to keep your urine pale yellow. ? Rest at home while you recover. ? Watch your condition for any changes. ? Take a warm bath to relieve any burning or pain from frequent diarrhea episodes. ? Keep all follow-up visits as told by your health care provider. This is important. Contact a health care provider if: ? You have a fever. ? Your diarrhea gets worse. ? You have new symptoms. ? You cannot keep fluids down. ? You feel light-headed or dizzy. ? You have a headache. ? You have muscle cramps. Get help right away if: ? You have chest pain. ? You feel extremely weak or you faint. ? You have bloody or black stools or stools that look like tar. ? You have severe pain, cramping, or bloating in your abdomen. ? You have trouble breathing or you are breathing very quickly. ? Your heart is beating very quickly. ? Your skin feels cold and clammy. ? You feel confused. ? You have signs of dehydration, such as: ? Dark urine, very little urine, or no urine. ? Cracked lips. ? Dry mouth. ? Sunken eyes. ? Sleepiness. ? Weakness. Summary ? Diarrhea is frequent loose and watery bowel movements. Diarrhea can make you feel weak and cause you to become dehydrated. ? Drink enough fluids to keep your urine pale yellow. ? Make sure that you wash your hands after using the toilet. If soap and water are not available, usehand periodicals library assistant. ? Contact a health care provider if your diarrhea gets worse or you have new symptoms. ? Get help right away if you have signs of dehydration. This information is not intended to replace advice given to you by your health care provider. Make sure you discuss any questions you have with your health care provider. Document Revised: 08/05/2019 Document Reviewed: 08/23/2018 [employer] Patient Education ?? 2021 [employer]. Tests Performed Medications and Immunizations Administered Given Sodium Chloride 0.9%, 1000 mL, IV !-Ofirmev, 1000 mg, IV Piggyback !-Zofran, 4 mg, IV Push morphine, 4 mg, IV Push Lab Test Name Test Result Date/Time WBC 13.7 x10^3/mcL 04/02/2022 09:28 EST RBC 4.5 x10^6/mcL 04/02/2022 09:28 EST Hgb 14.6 g/dL 04/02/2022 09:28 EST Hct 41.8 % 04/02/2022 09:28 EST MCV 93.5 04/02/2022 09:28 EST MCH 32.7 pg 04/02/2022 09:28 EST MCHC 34.9 g/dL 04/02/2022 09:28 EST RDW-CV 14.2 % 04/02/2022 09:28 EST Platelets 276 x10^3/mcL 04/02/2022 09:28 EST Segs Man 90 % 04/02/2022 09:28 EST Lymph Man 6 % 04/02/2022 09:28 EST [place] Man 4 % 04/02/2022 09:28 EST Eos Man 0 % 04/02/2022 09:28 EST Baso Man 0 % 04/02/2022 09:28 EST Band Man 0 % 04/02/2022 09:28 EST Abs Neut Man 12.3 x10^3/mcL 04/02/2022 09:28 EST RBC Morph Normal 04/02/2022 09:28 EST Sodium Level 140 mmol/L 04/02/2022 09:28 EST Potassium Level 3.5 mmol/L 04/02/2022 09:28 EST Chloride Level 102 mmol/L 04/02/2022 09:28 EST CO2 29 mmol/L 04/02/2022 09:28 EST Alk Phos 84 unit/L 04/02/2022 09:28 EST AST 39 unit/L 04/02/2022 09:28 EST ALT 31 unit/L 04/02/2022 09:28 EST BUN 16 mg/dL 04/02/2022 09:28 EST Glucose Level 124 mg/dL 04/02/2022 09:28 EST Creatinine Level 0.85 mg/dL 04/02/2022 09:28 EST eGFR AA 83 04/02/2022 09:28 EST eGFR Non-AA 83 04/02/2022 09:28 EST Calcium Level 9.1 mg/dL 04/02/2022 09:28 EST Protein Total 7.5 g/dL 04/02/2022 09:28 EST Albumin Level 3.8 g/dL 04/02/2022 09:28 EST Bilirubin Total 0.4 mg/dL 04/02/2022 09:28 EST Lipase Level 44 unit/L 04/02/2022 09:28 EST TSH 0.880 mcIntlUnit/mL 04/02/2022 09:35 EST Flu A- Brooke Negative 04/02/2022 09:27 EST Flu B- Brooke Negative 04/02/2022 09:27 EST Patient/Disk Sharpener Signature Patient Name:TOMAS BROWNE I have received this information and my questions have been answered. Patient/Disk Sharpener Name: Patient/Disk Sharpener Signature: Relationship to Patient: Witness Name/Signature: Date: Electronically Signed on: 04/02/2022 12:35 ESTSigned by:Oliverio Lundberg MD: PERFORM Event Display: ED Discharge Information Authored Date: [id number] TOMAS BROWNE :1970 Age:51 years Sex:Female Visit Date:04/02/2022 Primary Care Physician: Andrei Gutiérrez MD Discharge Instructions We would like to thank you for allowing us to assist you with your healthcare needs. The following includes patient education materials and information regarding your injury/illness. Diagnosis from Today's Visit Gastroenteritis Discharge Vitals Temperature??(Temporal Artery) 95.2 ??F (35.1 ??C) Heart Rate??(Monitored) 46 Respiratory Rate?? 15 Blood Pressure?? 173/77?? Height?? 61.00 in (154.940 cm) Weight??(Estimated) 125.02 lb (56.70 kg) Allergies topiramate??(Other) No Known Medication Allergies What to Do Next You Need to Schedule the Following Appointments Follow Up with??Follow up with primary care provider When:??Within 1 to 2 days Why: You been seen in the emergency department and no emergent medical condition has been identified. ??It is recommended that you follow-up with your primary care provider within the next??48 hours.??If your condition worsens or you are unable to??arrange for appropriate follow-up please??reach out to the emergency department by phone or return to the emergency department for repeat evaluation. You were treated today on an emergency basis; it may be vernon to contact your primary care provider to notify them of your visit today. You may have been referred to your regular doctor or a specialist, please follow up as instructed. If your condition worsens or you can't get in to see the doctor, contact the Emergency Department. Medications What How Much When Instructions Next Dose Unchanged buprenorphine-naloxone (Suboxone) See instructions Unchanged FLUoxetine (PROzac 20 mg oral capsule) 1 Capsules Oral (given by mouth) Every day Unchanged levothyroxine (Synthroid) Education Materials Bradycardia, Adult Bradycardia is a frwuxa-bupo-kwypxr heartbeat. A normal resting heart rate for an adult ranges from60 to 100 beats per minute. With bradycardia, the resting heart rate is less than 60 beats per minute. Bradycardia can prevent enough oxygen from reaching certain areas of your body when you are active.It can be serious if it keeps enough oxygen from reaching your brain and other parts of your body. Bradycardia is not a problem for everyone. For some healthy adults, a slow resting heart rate is normal. What are the causes? This condition may be caused by: ? A problem with the heart, including: ? A problem with the heart's electrical system, such as a heart block. With a heart block, electricalsignals between the chambers of the heart are partially or completely blocked, so they are not ableto work as they should. ? A problem with the heart's natural pacemaker (sinus node). ? Heart disease. ? A heart attack. ? Heart damage. ? Lyme disease. ? A heart infection. ? A heart condition that is present at (congenital heart defect). ? Certain medicines that treat heart conditions. ? Certain conditions, such as hypothyroidism and obstructive sleep apnea. ? Problems with the balance of chemicals and other substances, like potassium, in the blood. ? Trauma. ? Radiation therapy. What increases the risk? You are more likely to develop this condition if you: ? Are age 65 or older. ? Have high blood pressure (hypertension), high cholesterol (hyperlipidemia), or diabetes. ? Drink heavily, use tobacco or nicotine products, or use drugs. What are the signs or symptoms? Symptoms of this condition include: ? Light-headedness. ? Feeling faint or fainting. ? Fatigue and weakness. ? Trouble with activity or exercise. ? Shortness of breath. ? Chest pain (angina). ? Drowsiness. ? Confusion. ? Dizziness. How is this diagnosed? This condition may be diagnosed based on: ? Your symptoms. ? Your medical history. ? A physical exam. During the exam, your health care provider will listen to your heartbeat and check your pulse. To confirm the diagnosis, your health care provider may order tests, such as: ? Blood tests. ? An electrocardiogram (ECG). This test records the heart's electrical activity. The test can show how fast your heart is beating and whether the heartbeat is steady. ? A test in which you wear a portable device (event recorder or Holter monitor) to record your heart's electrical activity while you go about your day. ? An??exercise test. How is this treated? Treatment for this condition depends on the cause of the condition and how severe your symptoms are. Treatment may involve: ? Treatment of the underlying condition. ? Changing your medicines or how much medicine you take. ? Having a small, battery-operated device called a pacemaker implanted under the skin. When bradycardia occurs, this device can be used to increase your heart rate and help your heart beat in a regularrhythm. Follow these instructions at home: Lifestyle ? Manage any health conditions that contribute to bradycardia as told by your health care provider. ? Follow a heart-healthy diet. A branding specialist (dietitian) can help educate you about healthy food options and changes. ? Follow an exercise program that is approved by your health care provider. ? Maintain a healthy weight. ? Try to reduce or manage your stress, such as with yoga or meditation. If you need help reducing stress, ask your health care provider. ? Do not use any products that contain nicotine or tobacco, such as cigarettes, e- cigarettes, and chewing tobacco. If you need help quitting, ask your health care provider. ? Do not use illegal drugs. ? Limit alcohol intake to no more than 1 drink a day for non women and 2 drinks a day for men. Be aware of how much alcohol is in your drink. In the [place] one drink equals one 12 oz bottle of beer (355 mL), one 5 oz glass of wine (148 mL), or one 1?? oz glass of hard liquor (44 mL). General instructions ? Take yvat-uhf-tqjjsod and prescription medicines only as told by your health care provider. ? Keep all follow-up visits as told by your health care provider. This is important. How is this prevented? In some cases, bradycardia may be prevented by: ? Treating underlying medical problems. ? Stopping behaviors or medicines that can trigger the condition. Contact a health care provider if you: ? Feel light-headed or dizzy. ? Almost faint. ? Feel weak or are easily fatigued during physical activity. ? Experience confusion or have memory problems. Get help right away if: ? You faint. ? You have: ? An irregular heartbeat (palpitations). ? Chest pain. ? Trouble breathing. Summary ? Bradycardia is a sbtvvm-vqbc-bjekkv heartbeat. With bradycardia, the resting heart rate is less than 60 beats per minute. ? Treatment for this condition depends on the cause. ? Manage any health conditions that contribute to bradycardia as told by your health care provider. ? Do not use any products that contain nicotine or tobacco, such as cigarettes, e- cigarettes, and chewing tobacco, and limit alcohol intake. ? Keep all follow-up visits as told by your health care provider. This is important. This information is not intended to replace advice given to you by your health care provider. Make sure you discuss any questions you have with your health care provider. Document Revised: 09/30/2018 Document Reviewed: 08/28/2018 [employer] Patient Education ?? 2021 [employer] Diarrhea, Adult Diarrhea is frequent loose and watery bowel movements. Diarrhea can make you feel weak and cause you to become dehydrated. Dehydration can make you tired and thirsty, cause you to have a dry mouth, and decrease how often you urinate. Diarrhea typically lasts 2???3 days. However, it can last longer if it is a sign of something more serious. It is important to treat your diarrhea as told by your health care provider. Follow these instructions at home: Eating and drinking Follow these recommendations as told by your health care provider: ? Take an oral rehydration solution (ORS). This is an reah-jgy-mautlhp medicine that helps return your body to its normal balance of nutrients and water. It is found at pharmacies and retail stores. ? Drink plenty of fluids, such as water, ice chips, diluted fruit juice, and low- calorie sports drinks. You can drink milk also, if desired. ? Avoid drinking fluids that contain a lot of sugar or caffeine, such as energy drinks, sports drinks, and soda. ? Eat bland, audd-co-rnhvlu foods in small amounts as you are able. These foods include bananas, applesauce, rice, lean meats, toast, and crackers. ? Avoid alcohol. ? Avoid spicy or fatty foods. Medicines ? Take seyu-lbz-jdokxdg and prescription medicines only as told by your health care provider. ? If you were prescribed an antibiotic medicine, take it as told by your health care provider. Do notstop using the antibiotic even if you start to feel better. General instructions ? Wash your hands often using soap and water. If soap and water are not available, use a hand periodicals library assistant. Others in the household should wash their hands as well. Hands should be washed: ? After using the toilet or changing a diaper. ? Before preparing, cooking, or serving food. ? While caring for a sick person or while visiting someone in a hospital. ? Drink enough fluid to keep your urine pale yellow. ? Rest at home while you recover. ? Watch your condition for any changes. ? Take a warm bath to relieve any burning or pain from frequent diarrhea episodes. ? Keep all follow-up visits as told by your health care provider. This is important. Contact a health care provider if: ? You have a fever. ? Your diarrhea gets worse. ? You have new symptoms. ? You cannot keep fluids down. ? You feel light-headed or dizzy. ? You have a headache. ? You have muscle cramps. Get help right away if: ? You have chest pain. ? You feel extremely weak or you faint. ? You have bloody or black stools or stools that look like tar. ? You have severe pain, cramping, or bloating in your abdomen. ? You have trouble breathing or you are breathing very quickly. ? Your heart is beating very quickly. ? Your skin feels cold and clammy. ? You feel confused. ? You have signs of dehydration, such as: ? Dark urine, very little urine, or no urine. ? Cracked lips. ? Dry mouth. ? Sunken eyes. ? Sleepiness. ? Weakness. Summary ? Diarrhea is frequent loose and watery bowel movements. Diarrhea can make you feel weak and cause you to become dehydrated. ? Drink enough fluids to keep your urine pale yellow. ? Make sure that you wash your hands after using the toilet. If soap and water are not available, usehand periodicals library assistant. ? Contact a health care provider if your diarrhea gets worse or you have new symptoms. ? Get help right away if you have signs of dehydration. This information is not intended to replace advice given to you by your health care provider. Make sure you discuss any questions you have with your health care provider. Document Revised: 08/05/2019 Document Reviewed: 08/23/2018 [employer] Patient Education ?? 2021 [employer] Tests Performed Medications and Immunizations Administered Given Sodium Chloride 0.9%, 1000 mL, IV !-Ofirmev, 1000 mg, IV Piggyback !-Zofran, 4 mg, IV Push morphine, 4 mg, IV Push Lab Test Name Test Result Date/Time WBC 13.7 x10^3/mcL 04/02/2022 09:28 EST RBC 4.5 x10^6/mcL 04/02/2022 09:28 EST Hgb 14.6 g/dL 04/02/2022 09:28 EST Hct 41.8 % 04/02/2022 09:28 EST MCV 93.5 04/02/2022 09:28 EST MCH 32.7 pg 04/02/2022 09:28 EST MCHC 34.9 g/dL 04/02/2022 09:28 EST RDW-CV 14.2 % 04/02/2022 09:28 EST Platelets 276 x10^3/mcL 04/02/2022 09:28 EST Segs Man 90 % 04/02/2022 09:28 EST Lymph Man 6 % 04/02/2022 09:28 EST [place] Man 4 % 04/02/2022 09:28 EST Eos Man 0 % 04/02/2022 09:28 EST Baso Man 0 % 04/02/2022 09:28 EST Band Man 0 % 04/02/2022 09:28 EST Abs Neut Man 12.3 x10^3/mcL 04/02/2022 09:28 EST RBC Morph Normal 04/02/2022 09:28 EST Sodium Level 140 mmol/L 04/02/2022 09:28 EST Potassium Level 3.5 mmol/L 04/02/2022 09:28 EST Chloride Level 102 mmol/L 04/02/2022 09:28 EST CO2 29 mmol/L 04/02/2022 09:28 EST Alk Phos 84 unit/L 04/02/2022 09:28 EST AST 39 unit/L 04/02/2022 09:28 EST ALT 31 unit/L 04/02/2022 09:28 EST BUN 16 mg/dL 04/02/2022 09:28 EST Glucose Level 124 mg/dL 04/02/2022 09:28 EST Creatinine Level 0.85 mg/dL 04/02/2022 09:28 EST eGFR AA 83 04/02/2022 09:28 EST eGFR Non-AA 83 04/02/2022 09:28 EST Calcium Level 9.1 mg/dL 04/02/2022 09:28 EST Protein Total 7.5 g/dL 04/02/2022 09:28 EST Albumin Level 3.8 g/dL 04/02/2022 09:28 EST Bilirubin Total 0.4 mg/dL 04/02/2022 09:28 EST Lipase Level 44 unit/L 04/02/2022 09:28 EST TSH 0.880 mcIntlUnit/mL 04/02/2022 09:35 EST Flu A- Brooke Negative 04/02/2022 09:27 EST Flu B- Brooke Negative 04/02/2022 09:27 EST Patient/Disk Sharpener Signature Patient Name:NILDACARROLL TOMAS I have received this information and my questions have been answered. Patient/Disk Sharpener Name: Patient/Disk Sharpener Signature: Relationship to Patient: Witness Name/Signature: Date: Electronically Signed on: 04/02/2022 12:31 ESTSigned by:Oliverio Lundberg MD: PERFORM Event Display: ED Discharge Information Authored Date: [id number] TOMAS BROWNE :1970 Age:51 years Sex:Female Visit Date:04/02/2022 Primary Care Physician: Rodney DAVISON, Andrei Cedeno MD Discharge Instructions We would like to thank you for allowing us to assist you with your healthcare needs. The following includes patient education materials and information regarding your injury/illness. Diagnosis from Today's Visit Gastroenteritis Discharge Vitals Temperature??(Temporal Artery) 95.2 ??F (35.1 ??C) Heart Rate??(Monitored) 46 Respiratory Rate?? 15 Blood Pressure?? 173/77?? Height?? 61.00 in (154.940 cm) Weight??(Estimated) 125.02 lb (56.70 kg) Allergies topiramate??(Other) No Known Medication Allergies What to Do Next You Need to Schedule the Following Appointments Follow Up with??Follow up with primary care provider When:??Within 1 to 2 days Why: You been seen in the emergency department and no emergent medical condition has been identified. ??It is recommended that you follow-up with your primary care provider within the next??48 hours.??If your condition worsens or you are unable to??arrange for appropriate follow-up please??reach out to the emergency department by phone or return to the emergency department for repeat evaluation. You were treated today on an emergency basis; it may be vernon to contact your primary care provider to notify them of your visit today. You may have been referred to your regular doctor or a specialist, please follow up as instructed. If your condition worsens or you can't get in to see the doctor, contact the Emergency Department. Medications What How Much When Instructions Next Dose Unchanged buprenorphine-naloxone (Suboxone) See instructions Unchanged FLUoxetine (PROzac 20 mg oral capsule) 1 Capsules Oral (given by mouth) Every day Unchanged levothyroxine (Synthroid) Education Materials Diarrhea, Adult Diarrhea is frequent loose and watery bowel movements. Diarrhea can make you feel weak and cause you to become dehydrated. Dehydration can make you tired and thirsty, cause you to have a dry mouth, and decrease how often you urinate. Diarrhea typically lasts 2???3 days. However, it can last longer if it is a sign of something more serious. It is important to treat your diarrhea as told by your health care provider. Follow these instructions at home: Eating and drinking Follow these recommendations as told by your health care provider: ? Take an oral rehydration solution (ORS). This is an ubbk-svc-gcbaqxo medicine that helps return your body to its normal balance of nutrients and water. It is found at pharmacies and retail stores. ? Drink plenty of fluids, such as water, ice chips, diluted fruit juice, and low- calorie sports drinks. You can drink milk also, if desired. ? Avoid drinking fluids that contain a lot of sugar or caffeine, such as energy drinks, sports drinks, and soda. ? Eat bland, ewiq-wf-ehremr foods in small amounts as you are able. These foods include bananas, applesauce, rice, lean meats, toast, and crackers. ? Avoid alcohol. ? Avoid spicy or fatty foods. Medicines ? Take lpfc-rtg-tvfsltq and prescription medicines only as told by your health care provider. ? If you were prescribed an antibiotic medicine, take it as told by your health care provider. Do notstop using the antibiotic even if you start to feel better. General instructions ? Wash your hands often using soap and water. If soap and water are not available, use a hand periodicals library assistant. Others in the household should wash their hands as well. Hands should be washed: ? After using the toilet or changing a diaper. ? Before preparing, cooking, or serving food. ? While caring for a sick person or while visiting someone in a hospital. ? Drink enough fluid to keep your urine pale yellow. ? Rest at home while you recover. ? Watch your condition for any changes. ? Take a warm bath to relieve any burning or pain from frequent diarrhea episodes. ? Keep all follow-up visits as told by your health care provider. This is important. Contact a health care provider if: ? You have a fever. ? Your diarrhea gets worse. ? You have new symptoms. ? You cannot keep fluids down. ? You feel light-headed or dizzy. ? You have a headache. ? You have muscle cramps. Get help right away if: ? You have chest pain. ? You feel extremely weak or you faint. ? You have bloody or black stools or stools that look like tar. ? You have severe pain, cramping, or bloating in your abdomen. ? You have trouble breathing or you are breathing very quickly. ? Your heart is beating very quickly. ? Your skin feels cold and clammy. ? You feel confused. ? You have signs of dehydration, such as: ? Dark urine, very little urine, or no urine. ? Cracked lips. ? Dry mouth. ? Sunken eyes. ? Sleepiness. ? Weakness. Summary ? Diarrhea is frequent loose and watery bowel movements. Diarrhea can make you feel weak and cause you to become dehydrated. ? Drink enough fluids to keep your urine pale yellow. ? Make sure that you wash your hands after using the toilet. If soap and water are not available, usehand periodicals library assistant. ? Contact a health care provider if your diarrhea gets worse or you have new symptoms. ? Get help right away if you have signs of dehydration. This information is not intended to replace advice given to you by your health care provider. Make sure you discuss any questions you have with your health care provider. Document Revised: 08/05/2019 Document Reviewed: 08/23/2018 Elsevier Patient Education ?? 2021 [employer] Tests Performed Medications and Immunizations Administered Given Sodium Chloride 0.9%, 1000 mL, IV !-Ofirmev, 1000 mg, IV Piggyback !-Zofran, 4 mg, IV Push morphine, 4 mg, IV Push Lab Test Name Test Result Date/Time WBC 13.7 x10^3/mcL 04/02/2022 09:28 EST RBC 4.5 x10^6/mcL 04/02/2022 09:28 EST Hgb 14.6 g/dL 04/02/2022 09:28 EST Hct 41.8 % 04/02/2022 09:28 EST MCV 93.5 04/02/2022 09:28 EST MCH 32.7 pg 04/02/2022 09:28 EST MCHC 34.9 g/dL 04/02/2022 09:28 EST RDW-CV 14.2 % 04/02/2022 09:28 EST Platelets 276 x10^3/mcL 04/02/2022 09:28 EST Segs Man 90 % 04/02/2022 09:28 EST Lymph Man 6 % 04/02/2022 09:28 EST [place] Man 4 % 04/02/2022 09:28 EST Eos Man 0 % 04/02/2022 09:28 EST Baso Man 0 % 04/02/2022 09:28 EST Band Man 0 % 04/02/2022 09:28 EST Abs Neut Man 12.3 x10^3/mcL 04/02/2022 09:28 EST RBC Morph Normal 04/02/2022 09:28 EST Sodium Level 140 mmol/L 04/02/2022 09:28 EST Potassium Level 3.5 mmol/L 04/02/2022 09:28 EST Chloride Level 102 mmol/L 04/02/2022 09:28 EST CO2 29 mmol/L 04/02/2022 09:28 EST Alk Phos 84 unit/L 04/02/2022 09:28 EST AST 39 unit/L 04/02/2022 09:28 EST ALT 31 unit/L 04/02/2022 09:28 EST BUN 16 mg/dL 04/02/2022 09:28 EST Glucose Level 124 mg/dL 04/02/2022 09:28 EST Creatinine Level 0.85 mg/dL 04/02/2022 09:28 EST eGFR AA 83 04/02/2022 09:28 EST eGFR Non-AA 83 04/02/2022 09:28 EST Calcium Level 9.1 mg/dL 04/02/2022 09:28 EST Protein Total 7.5 g/dL 04/02/2022 09:28 EST Albumin Level 3.8 g/dL 04/02/2022 09:28 EST Bilirubin Total 0.4 mg/dL 04/02/2022 09:28 EST Lipase Level 44 unit/L 04/02/2022 09:28 EST TSH 0.880 mcIntlUnit/mL 04/02/2022 09:35 EST Flu A- Brooke Negative 04/02/2022 09:27 EST Flu B- Brooke Negative 04/02/2022 09:27 EST Patient/Disk Sharpener Signature Patient Name:LENCRISTITOMAS HODGES I have received this information and my questions have been answered. Patient/Disk Sharpener Name: Patient/Disk Sharpener Signature: Relationship to Patient: Witness Name/Signature: Date: Electronically Signed on: 04/02/2022 12:28 ESTSigned by:MARAL Discharge summary * Cheryl Del Toro: PERFORM Event Display: Discharge Note Authored Date: * Cheryl Del Toro: PERFORM Event Display: Discharge Note Authored Date: Diagnosis: 1. Gastroenteritis Comment: Diagnosis: Abdominal pain Comment: Electronically Signed on 04/02/22 12:50 PM Cheryl Del Toro Patient Care team information Personnel Name: Andrei Gutiérrez MD Address: Address: [address] [address]
--- OUTSIDE RECORDS SUMMARY | 2023-09-27 15:20 | XMS_ITS | Continuity of Care Document ---
Author Name Unknown Organization [facility] Address [address] [place] [address] Care Team Providers Care Regulatory Agency Director Name Role Phone Andrei Gutiérrez Primary Care Physician Encounter [facility] Date(s): 03/07/22 - 03/07/[address] [id number] Discharge Disposition: Home or Self Care Attending Physician: Wisam Gan PA-C Admitting Physician: Wisam Gan PA-C Referring Physician: Wisam Gan PA-C Allergies, Adverse Reactions, Alerts No Known Medication [...] Recorded measles/mumps/rubella virus vaccine 04/02/00 Recor ded Social History Social History Type Response Sex Female Patient Care team information Personnel Name: Andrei Gutiérrez MD Address: Address: [address] [address]
== END 2023-09-27 15:18 | disposition home or self-care (01) ==
LOC: NCHCN 15:17
PROVIDERS: PCP Internal Medicine; Visit Provider Physician Assistant
DX: R39.89 Other symptoms and signs involving the genitourinary system (principal); N39.0 Urinary tract infection, site not specified; B96.20 Unspecified Escherichia coli [E. coli] as the cause of diseases classified elsewhere
CPT/HCPCS: 87077; 87086; 87186

== ENCOUNTER 2025-03-02 20:53 | Outpatient (REF) | payer BC, SELFPAY ==
[2025-03-02 20:31] LABS: ALT 12 U/L (10-49); AST 20 U/L (<34); Albumin 4.3 g/dL (3.2-5.0); Alkaline Phosphatase 68 U/L (46-116); Anion Gap 6.2 mmol/L (3-11); BUN 11 mg/dL (9-23); Bilirubin, Total 0.20 mg/dL (0.2-1.2); CO2 27.8 mmol/L (20.0-31.0); Calcium 9.0 mg/dL (8.3-10.6); Chloride 107 mmol/L (98-107); Cholesterol 197 mg/dL (<200); Glucose 77 mg/dL (74-106); HDL Cholesterol 68 mg/dL (>40); Potassium 4.2 mmol/L (3.5-5.1); Sodium 141 mmol/L (136-145); Total Protein 6.6 g/dL (5.7-8.2)
[2025-03-02 20:32] LABS: TSH 7.91 uIU/mL (0.55-4.78)
== END 2025-03-02 20:54 | disposition home or self-care (01) ==
LOC: NCHCN 20:53
PROVIDERS: PCP Internal Medicine; Visit Provider Internal Medicine
DX: E03.9 Hypothyroidism, unspecified (principal); I10 Essential (primary) hypertension; E78.5 Hyperlipidemia, unspecified
CPT/HCPCS: 80053; 80061; 84439; 84443